=== PATIENT | female | born 1995 | race Caucasian/White ===

== ENCOUNTER 2022-11-25 09:57 | Outpatient (CLI) | payer OTHER, SELFPAY ==
[2022-11-25 18:33] LABS: Alanine Aminotransferase 21 U/L (6-35); Alkaline Phosphatase 65 U/L (38-126); Anion Gap 6 mmol/L (8-16); Aspartate Amino Transferase 30 U/L (14-36); Bilirubin,Total 0.5 mg/dL (0.2-1.3); Blood Urea Nitrogen 9 mg/dL (7-17); Calcium 8.8 mg/dL (8.4-10.2); Carbon Dioxide 26 mmol/L (22-30); Chloride 104 mmol/L (98-107); Cholesterol 184 mg/dL (0-200); Estimated Glomerular Filt Rate > 60; Glucose 81 mg/dL (65-110); HDL Direct 53 mg/dL; Sodium 136 mmol/L (137-145); Triglycerides 62 mg/dL (<150)
[2022-11-25 18:35] LABS: Basophils Percent Auto 0.6 % (0.2-1.2); Eosinophils Absolute Auto 0.1 K/mm3 (0-0.3); Hematocrit 42.4 % (37.0-47.0); Hemoglobin 13.4 g/dL (12.0-15.0); Immature Granulocyte Absolute 0.01 K/mm3 (0.00-0.031); Immature Granulocyte Percent A 0.2 % (0-0.5); Lymphocytes Absolute Auto 2.34 K/mm3 (0.9-3.2); Lymphocytes Percent Auto 36.3 % (18.3-44.2); Mean Corpuscular HGB Conc 31.6 g/dl (32-36); Mean Corpuscular Hemoglobin 27.2 pg (26-34); Mean Corpuscular Volume 86.2 fl (80-100); Mean Platelet Volume 9.7 fl (7.4-10.4); Monocytes Absolute Auto 0.5 K/mm3 (0.1-0.6); Monocytes Percent Auto 7.6 % (2.6-8.5); Neutrophils Absolute Auto 3.4 K/mm3 (1.3-6.7); Neutrophils Percent Auto 53.3 % (45.5-73.1); Platelet Count Result 275 k/mm3 (150-375); Red Blood Count 4.92 M/mm3 (4.2-5.4); White Blood Count 6.5 K/mm3 (4.5-10.0)
[2022-11-25 18:47] LABS: LDL Cholesterol Direct 105 mg/dL
== END 2022-11-25 09:58 | disposition home or self-care (01) ==
PROVIDERS: PCP Family Medicine; Visit Provider Family Medicine
DX: R53.83 Other fatigue (principal); Z13.220 Encounter for screening for lipoid disorders; Z13.29 Encounter for screening for other suspected endocrine disorder; Z13.228 Encounter for screening for other metabolic disorders
CPT/HCPCS: 36415; 80053; 80061; 84443; 85025

== ENCOUNTER 2023-02-08 16:52 | Outpatient (CLI) | payer OTHER, SELFPAY ==
[2023-02-08 20:37] LABS: Beta HCG Quantitative 14.12 mIU/ML
== END 2023-02-08 16:53 | disposition home or self-care (01) ==
LOC: ANHLAB 16:54
PROVIDERS: PCP Family Medicine; Visit Provider Obstetrics & Gynecology
DX: O26.859 Spotting complicating pregnancy, unspecified trimester (principal); Z3A.00 Weeks of gestation of pregnancy not specified
CPT/HCPCS: 36415; 84702

== ENCOUNTER 2023-02-13 15:59 | Outpatient (CLI) | payer OTHER, SELFPAY ==
[2023-02-13 19:37] LABS: Beta HCG Quantitative 10.33 mIU/ML
== END 2023-02-13 16:00 | disposition home or self-care (01) ==
LOC: ANHGOSHLAB 16:01
PROVIDERS: PCP Family Medicine; Visit Provider Obstetrics & Gynecology
DX: O26.859 Spotting complicating pregnancy, unspecified trimester (principal); Z3A.00 Weeks of gestation of pregnancy not specified
CPT/HCPCS: 36415; 84702

== ENCOUNTER 2023-02-27 16:00 | Outpatient (CLI) | payer OTHER, SELFPAY ==
[2023-02-27 18:48] LABS: Beta HCG Quantitative 4.07 mIU/ML
== END 2023-02-27 16:01 | disposition home or self-care (01) ==
LOC: ANHGOSHLAB 16:01
PROVIDERS: PCP Family Medicine; Visit Provider Obstetrics & Gynecology
DX: O02.1 Missed abortion (principal); Z3A.00 Weeks of gestation of pregnancy not specified
CPT/HCPCS: 36415; 84702

== ENCOUNTER → 2023-07-27 10:33 | Outpatient (CLI) | payer OTHER, SELFPAY ==
--- NOTE | ~2023-07-27 | US_ITS ---
EXAMINATION: US OB <=14 wk fetus w TV DATE: 07/27/2023 10:59 INDICATION: First trimester dating TECHNIQUE: Real-time pelvic transabdominal and transvaginal ultrasound was performed. COMPARISON: None. FINDINGS: The uterus measures 7.3 x 6.3 x 4.9 cm. There is an intrauterine gestational sac. There is a 10 mm x 7 mm x 4 mm hypoechoic area adjacent to the gestational sac. A yolk sac is identified. Feta l heart motion is identified measuring 167 beats per minute (bpm) by M-mode Doppler. The crown rump length measures 14 mm, which correlates with an estimated gestational age of 7 weeks and 4 day(s ) (+/-) 5 day(s). The right ovary measures 3.3 x 2.6 x 2.6 cm. The left ovary measures 2.5 x 3.6 x 2.4 cm. There is nor mal vascular flow in the ovaries. There is no free fluid in the pelvis. IMPRESSION: 1. Live intrauterine with an estimated gestational age of 7 weeks and 4 day(s) (+/-) 5 day( s) and an estimated delivery date of 03/10/2024. 2. Small subchorionic hematoma. Reviewed, dictated and finalized at location [facility] IMPRESSION: 1. Live intrauterine with an estimated gestational age of 7 weeks and 4 day(s) (+/-) 5 day(s) and an estimated delivery date of 03/10/2024. 2. Small subchorionic hematoma.
== END ==
PROVIDERS: PCP Family Medicine; Visit Provider Obstetrics & Gynecology
DX: N91.2 Amenorrhea, unspecified (principal); Z3A.01 Less than 8 weeks gestation of pregnancy
CPT/HCPCS: 76801; 76817

== ENCOUNTER 2023-08-14 16:03 | Outpatient (CLI) | payer OTHER, SELFPAY ==
[2023-08-14 18:56] LABS: Basophils Percent Auto 0.3 % (0.2-1.2); Eosinophils Absolute Auto 0.1 K/mm3 (0-0.3); Eosinophils Percent Auto 1.5 % (0-4.4); Hematocrit 41.3 % (37.0-47.0); Hemoglobin 13.7 g/dL (12.0-15.0); Immature Granulocyte Absolute 0.03 K/mm3 (0.00-0.031); Immature Granulocyte Percent A 0.3 % (0-0.5); Lymphocytes Absolute Auto 3.02 K/mm3 (0.9-3.2); Lymphocytes Percent Auto 32.3 % (18.3-44.2); Mean Corpuscular HGB Conc 33.2 g/dl (32-36); Mean Corpuscular Hemoglobin 28.2 pg (26-34); Mean Platelet Volume 9.8 fl (7.4-10.4); Monocytes Absolute Auto 0.5 K/mm3 (0.1-0.6); Monocytes Percent Auto 5.7 % (2.6-8.5); Neutrophils Absolute Auto 5.6 K/mm3 (1.3-6.7); Neutrophils Percent Auto 59.9 % (45.5-73.1); Platelet Count Result 298 k/mm3 (150-375); Red Blood Count 4.86 M/mm3 (4.2-5.4); Red Cell Distribution Width 13.1 % (11.5-14.5); White Blood Count 9.4 K/mm3 (4.5-10.0)
[2023-08-14 20:12] LABS: Hepatitis B Surface Antigen Negative (Negative); Rubella IgG Antibody 38.1 IU/ML
[2023-08-14 20:35] LABS: HIV 1/2 Ab P24 Ag Result Negative (Negative)
[2023-08-15 09:50] LABS: Rapid Plasma Reagin Non-Reactive (NonReactive)
[2023-08-16 09:25] LABS: Varicella IgG Antibody <135.00 Index (>=165.00)
[2023-08-17 09:59] LABS: CMV IgG Antibody <0.60 U/mL (<0.60)
== END 2023-08-14 16:04 | disposition home or self-care (01) ==
LOC: ANHGOSHLAB 16:05
PROVIDERS: PCP Family Medicine; Visit Provider Obstetrics & Gynecology
DX: N91.2 Amenorrhea, unspecified (principal)
CPT/HCPCS: 36415; 84702; 85025; 86592; 86644; 86703; 86747; 86762; 86787; 86850; 86900; 86901; 87086; 87340; G0432

== ENCOUNTER 2024-01-23 17:11 | Outpatient (RCR) | payer OTHER, SELFPAY ==
[2024-01-23 17:46] VITALS: BP 127/73; PULSE 63
== END 2024-04-08 09:54 | disposition home or self-care (01) ==
LOC: ANHOBOP 17:11
PROVIDERS: PCP Family Medicine; Visit Provider Obstetrics & Gynecology
DX: O36.8130 Decreased fetal movements, third trimester, not applicable or unspecified (principal); Z3A.33 33 weeks gestation of pregnancy
CPT/HCPCS: 59025

== ENCOUNTER 2024-02-26 08:42 | Outpatient (CLI) | payer OTHER, SELFPAY ==
[2024-02-26 09:30] VITALS: BP 124/78; PULSE 85
[2024-02-26 09:49] LABS: OBXCEM ROM Plus Negative (Negative)
== END 2024-02-26 09:38 | disposition home or self-care (01) ==
LOC: ANHOBOP 09:29 → ANHLDR 09:44
PROVIDERS: PCP Family Medicine; Visit Provider Obstetrics & Gynecology
DX: O42.90 Premature rupture of membranes, unspecified as to length of time between rupture and onset of labor, unspecified weeks of gestation (principal); Z3A.00 Weeks of gestation of pregnancy not specified
CPT/HCPCS: 59025; 84112; 99199

== ENCOUNTER 2024-03-04 15:57 | Inpatient (IN) | payer OTHER, SELFPAY ==
[2024-03-04] VITALS (13 sets, daily range): BP systolic 118–142; BP diastolic 67–93; PULSE 68–91; TEMP 36.6–36.9; BMI 36.3
[2024-03-04 16:48] LABS: Basophils Percent Auto 0.3 % (0.2-1.2); Eosinophils Percent Auto 0.3 % (0-4.4); Hematocrit 37.8 % (37.0-47.0); Hemoglobin 12.5 g/dL (12.0-15.0); Immature Granulocyte Absolute 0.08 K/mm3 (0.00-0.031); Immature Granulocyte Percent A 0.7 % (0-0.5); Lymphocytes Percent Auto 13.4 % (18.3-44.2); Mean Corpuscular HGB Conc 33.1 g/dl (32-36); Mean Corpuscular Hemoglobin 28.4 pg (26-34); Mean Corpuscular Volume 85.9 fl (80-100); Mean Platelet Volume 12.4 fl (7.4-10.4); Monocytes Absolute Auto 0.5 K/mm3 (0.1-0.6); Monocytes Percent Auto 3.9 % (2.6-8.5); Neutrophils Absolute Auto 9.8 K/mm3 (1.3-6.7); Neutrophils Percent Auto 81.4 % (45.5-73.1); Platelet Count Result 194 k/mm3 (150-375); Red Cell Distribution Width 13.8 % (11.5-14.5)
[2024-03-04] MEDS: DINOPROSTONE 10 MG VAG INSERT VAGINAL (16:55)
[2024-03-04 17:21] LABS: Rapid Plasma Reagin Non-Reactive (NonReactive)
[2024-03-04 17:42] LABS: HIV 1/2 Ab P24 Ag Result Negative (Negative)
[2024-03-05] VITALS (137 sets, daily range): BP systolic 109–151; BP diastolic 63–99; PULSE 63–142; RESP 16–18; TEMP 36.6–37.3; O2SAT 95–100
[2024-03-05] MEDS: OXYTOCIN 30 UNITS/NS 500 ML 30 UNITS/500 ML BAG 6 UNITS IV CONT (05:30)
[2024-03-05] MEDS: LACTATED RINGERS 1,000 ML 125 ML IV CONT ×2 (05:30→08:03)
--- NOTE | 2024-03-05 07:31 | WPDANESEPP ---
Anes - Eval Pre Procedure Procedure: Labor epidural Date/Time: 03/05/24 07:31 Surgeon: Melody Preop Diagnosis: Pain during labor Pre Op Diagnosis: Induction of Labor Patient Data Age: 28 Gender: F Height: 1.68 m Weight: 102 kg Last Vital Signs Temp 36.8 C 03/05/24 05:00 Pulse 91 03/05/24 07:01 BP 127/89 03/05/24 07:01 O2 Del Method Room Air 03/04/24 18:00 Allergies Allergy/AdvReac Type Severity Reaction Status Date / Time No Known Allergies Allergy Verified 02/27/24 16:56 Home Medications Medication Instructions Recorded Confirmed Type [id number] 3-fat com #1 27 1 cap PO DAILY 12/06/23 02/27/24 History mg-1 mg-300 mg capsule omeprazole 20 mg capsule,delayed 20 mg PO DAILY #60 caps 01/15/24 02/27/24 Rx release RSV vac, preF A and preF B(PF) 120 0.5 ml IM ONCE #1 ea 02/07/24 02/27/24 Rx mcg/0.5 mL IM solution (Abrysvo (PF)) sertraline 100 mg tablet 100 mg PO HS 03/04/24 03/04/24 History Laboratory Tests 03/04/24 16:16 WBC 12.0 H K/mm3 (4.5-10.0) RBC 4.40 M/mm3 (4.2-5.4) Hgb 12.5 g/dL (12.0-15.0) Hct 37.8 % (37.0-47.0) MCV 85.9 fl (80-100) MCH 28.4 pg (26-34) MCHC 33.1 g/dl (32-36) RDW 13.8 % (11.5-14.5) Plt Count 194 k/mm3 (150-375) MPV 12.4 H fl (7.4-10.4) Immature Gran % (Auto) 0.7 H % (0-0.5) Neut % (Auto) 81.4 H % (45.5-73.1) Lymph % (Auto) 13.4 L % (18.3-44.2) Stafford % (Auto) 3.9 % (2.6-8.5) Eos % (Auto) 0.3 % (0-4.4) Baso % (Auto) 0.3 % (0.2-1.2) Lymph # (Auto) 1.60 K/mm3 (0.9-3.2) Stafford # (Auto) 0.5 K/mm3 (0.1-0.6) Eos # (Auto) 0.0 K/mm3 (0-0.3) Baso # (Auto) 0.0 K/mm3 (0.0-0.1) Abs Immat Gran (auto) 0.08 H K/mm3 (0.00-0.031) Absolute Neuts (auto) 9.8 H K/mm3 (1.3-6.7) Absolute Nucleated RBC 0.000 K/mm3 (0.0-0.012) Nucleated RBC % 0.0 % (0.0-0.2) RPR Non-reactive (NonReactive) HIV 1&2 Ab/P24 Ag 4thGn Negative (Negative) Blood Type O Positive Antibody Screen Negative Patient hx anesthesia problems: none Family hx anesthesia problems: none Results Review: All pre-operative results and documents have been reviewed as part of the pre-operative evaluation. [facility] Past Medical History Medical History Anxiety Complete miscarriage (02/2023) Surgical History Surgical History History of gynecological procedure (~12/2017) Kyleena insertion History of gynecological procedure (11/28/22) kyleena IUD removal [facility] teeth removed Family History Family History Mother Osteopenia Breast cancer, Onset Age: 50 Father Hypothyroidism, unspecified Grandparent , in her 70's Diabetes mellitus Alzheimer disease Grandparent , in his 60's Rheumatoid arthritis Sibling Hypothyroidism, unspecified Social History Social History Smoking status: Never smoker Second hand tobacco smoke exposure: No Alcohol intake: current Drinks per week: 0 Alcohol use details: will have 1 beer or glass of wine a month Substance use: never Substance use type: does not use Do You Feel Safe in your Home?: Yes Lack of Transportation: No Lack of Food: Never True Current Housing: I Have Housing Concerned About Future Housing: No Difficulty Paying Gas/Electric Bills: No Difficulty Paying for Meds: No Currently Unemployed: No Education: Bachelor's Degree Difficulty w/ Childcare or Family Care: No Living arrangements: other Additional living arrangements comments: Occupation/Education: occupation Additional occupation/education comments: teacher Gender identity (if verbalized
--- NOTE | 2024-03-05 13:51 | WPDHPUPDATE1 ---
History and Physical Update Update Date/Time: 03/05/24 13:51 History and Physical has been reviewed, including an updated exam of the patient. There are NO changes in the patient's condition. Risks, benefits, and alternatives have been discussed and questions answered. Patient agrees to proceed with procedure.
--- NOTE | 2024-03-05 13:51 | WPDOBADMIT ---
Obstetrics - Admit Note Admission Note: record reviewed. No pertinent additions to the history and/or any subsequent changes in the physical findings that are not consistent with the expected course of the were found. Additions to the history and/or subsequent changes in the physical findings follow. None.
--- NOTE | 2024-03-05 13:51 | PM.OBPRVD ---
OB - Vaginal Delivery Note Procedure Delivery date: 03/05/24 Induction method: Per Cervidil Protocol Delivery augmentation: Rupture of Membranes and Pitocin Delivery monitor: External FHT and Internal Uterine Route of delivery: Episiotomy description: None Laceration Description: Perineal - 2nd Degree Delivery repair: chromic Specimen: No Quantitative Blood Loss (ml): 300 Anesthesia type: Epidural Disposition: Floor Complications: No immediate complications Narrative: patient prepped and draped in this procedure. Maternal expulsive efforts readily delivered vertex over intact perineum. Baby was delivered without difficulty, cord clamped cut, and baby passed on maternal abdomen. Placenta delivered spontaneously and the uterus was well contracted. Cervix vagina vulva were inspected with second-degree laceration noted. This was approximated using 2-0 chromic in a running interlocking manner of the vaginal mucosa, deep tissue was approximated as well the subcuticular layer to approximate the perineum. There was no bleeding and this was all well approximated. Immediate postop condition of mother and baby were both excellent. Baby Gestational Age by Date: 39 gender: Female presentation: vertex position: Right Occiput Anterior Placenta delivery description: Spontaneous Cord Vessel Description: 3 Vessels
[2024-03-05] MEDS: OXYTOCIN 30 UNITS/NS 500 ML 30 UNITS/500 ML BAG 125 UNITS IV CONT (14:01)
[2024-03-05] MEDS: COSYNTROPIN 0.25 MG/ML VIAL 1 MG IV PUSH (15:31)
[2024-03-05] MEDS: IBUPROFEN 600 MG TABLET PO ×2 (16:09→23:06)
[2024-03-05] MEDS: BENZOCAINE 20% AER SPR (*SP) 56 GM CAN 1 SPRAY TOPICAL (16:09)
[2024-03-05] MEDS: WITCH HAZEL 40 PADS 1 PAD TOPICAL (16:10)
--- NOTE | 2024-03-05 16:32 | PC.NURSE ---
Patient transferred to post room #281 via wheel chair. Support person present. Oriented to unit, room, information board, rooming in, admission packet and security measures. Patient verbalizes understanding.
[2024-03-05] MEDS: SERTRALINE HCL 50 MG TABLET 100 MG PO (20:46)
[2024-03-06 04:25] VITALS: BP 134/87; PULSE 79; RESP 18; TEMP 36.8; O2SAT 98
[2024-03-06 05:52] LABS: Hematocrit 34.3 % (37.0-47.0); Hemoglobin 11.3 g/dL (12.0-15.0)
[2024-03-06 07:30] VITALS: BP 124/72; PULSE 80; RESP 18; TEMP 36.8; O2SAT 98
[2024-03-06] MEDS: DOCUSATE SODIUM 100 MG CAPSULE PO ×2 (07:49→17:51)
[2024-03-06] MEDS: IBUPROFEN 600 MG TABLET PO ×2 (07:49→17:51)
[2024-03-06 12:17] VITALS: BP 121/78; PULSE 96; RESP 16; TEMP 36.6; O2SAT 98
--- NOTE | 2024-03-06 13:44 | WPDANLDPN2 ---
Anes-Prog Note L&D Date/Time: 03/06/24 13:44 Comfortable throughout: labor and delivery Neuraxial method: epidural Epidural/Spinal procedure site: clean & non-tender Neuro status: Neuro function grossly intact. Cardiovascular status: normal Respiratory status: normal Airway patency: baseline Mental status: baseline Post-Op hydration status: normal Vital Signs: Last Vital Signs Temp 36.6 C 03/06/24 12:17 Pulse 96 03/06/24 12:17 Resp 16 03/06/24 12:17 BP 121/78 03/06/24 12:17 Pulse Ox 98 03/06/24 12:17 O2 Del Method Room Air 03/05/24 23:10 Pain score (VAS): 1 Post-procedural complaints: none Patient feedback: Patient satisfied with anesthetic care.
--- NOTE | 2024-03-06 14:57 | PM.OBDSVD ---
DS: Admitting Diagnosis Discharge Date 03/07/2024 Admitting Diagnosis DS: Discharge Diagnosis Discharge Diagnosis (1) , delivered: Code(s): O80 - Encounter for full-term uncomplicated delivery Status: Acute OB - DS: Summary OB Procedures : None OB Procedures Intrapartum: Spontaneous Vag Delivery OB Procedures: : None Peripartum Data Laceration Description: Perineal - 2nd Degree Episiotomy description: None Time Spent with Patient Time attestation: Total time spent providing and/or coordinating discharge services: DS: Data Data Completed and Pending Labs on day of discharge: Labs from last 24 hours 03/06/24 04:30 Hgb 11.3 L Hct 34.3 L Discharge Plan Discharge Discharging Clinician: Dayton Oliver Patient Disposition: Home, Self-Care Activity: may shower, no straining, follow weight bearing status and pelvic rest Diet: as tolerated Patient Instructions: Antibiotic Form Stand Alone Forms: General Discharge Information Follow-up/Referrals: Dayton Oliver MD [Physician] - 3 Weeks Discharge Medications: New ibuprofen 600 mg Tablet 600 mg PO Q6H PRN (Reason: Cramping) Qty: 30 0RF Continued [id number] 3-fat com #1 27-1-300 mg capsule 1 cap PO DAILY omeprazole 20 mg capsule,delayed release(DR/EC) 20 mg PO DAILY Qty: 60 1RF sertraline 100 mg tablet 100 mg PO HS Abrysvo (PF) 120 mcg/0.5 mL recon soln 0.5 ml IM ONCE Qty: 1 0RF Rx Instructions: as a single dose Date of admission: 03/04/24 15:57 Primary Care Provider: Stan Newton Admitting Provider: Dayton Oliver Attending physician on admission: Dayton Oliver Condition: Stable
--- NOTE | 2024-03-06 16:50 | PC.NURSE ---
Mother verbalizes she is able to independently latch with appropriate positioning and alignment. She denies any nipple discomfort and is responsively . Mother declines any additional assistance or education at this time. Mother is encouraged to call for assistance if her infant doesn?t latch, pain with latching, questions or concerns. Mother voiced understanding of information shared along with the mom/baby guide for an additional resource. Reported to the Primary RN.
--- NOTE | 2024-03-06 18:50 | PC.NURSE ---
PT introductions made and plan of care discussed per post , pain management, breast feeding, phototherapy and daily care activities. PT and spouse both recipients of such instructions and no barriers to learning identified at this time. PT received such instructions per one to one discussion mom baby care guide and demonstrations. PT verbalized understanding of such care. Pt tearful initially because of phototherapy and breast feeding. Questions and concerns were addressed and pt verbalized that she was feeling better.
[2024-03-06 20:00] VITALS: BP 128/94; PULSE 92; RESP 18; TEMP 37.2; O2SAT 98
[2024-03-06] MEDS: SERTRALINE HCL 50 MG TABLET 100 MG PO (22:24)
[2024-03-07] MEDS: DOCUSATE SODIUM 100 MG CAPSULE PO (07:33)
[2024-03-07] MEDS: ACETAMINOPHEN 325 MG TABLET 650 MG PO (07:33)
[2024-03-07] MEDS: IBUPROFEN 600 MG TABLET PO (07:36)
[2024-03-07 07:40] VITALS: BP 133/87; PULSE 97; RESP 18; TEMP 36.5; O2SAT 98
--- NOTE | 2024-03-07 11:45 | PC.NURSE ---
Consulted with mother concerning needs and she shared her struggle with putting baby to breast since baby had to go under bili lights. Mom has been pumping and bottle feeding colostrum, and we reviewed mixing with a small amount of formula to ensure baby gets all the breastmilk. Mother is feeding appropriately for growth of and understands stimulating infant to eat if needed. Infant has an elevated bilirubin and the doctor has recommended supplementation with formula. Mom would eventually like to put baby back to breast but has been bottle feeding only. We discussed ways to get baby back to breast, including attempting at every feeding time. Encouraged mom to try even for just a few minutes, not to allow herself or baby to get too frustrated before they move on to the bottle. We reviewed consistency of pumping (she has a spectra at home) and maintaining a good milk supply. Reinforced understanding of milk production, transition of milk, signs of adequate intake, transition of stool, prevention/relief of engorgement, plugged ducts, mastitis, responsive watching for feeding cues, knowing how much to feed baby (ad fermín, let baby be the guide), and when to call a provider using the resource of the feeding sheet along with the mom and baby guide. Handouts given including latch on checklist, pumping primer and how to know baby is getting enough. USDA milk storage guidelines given also. Mother and father voiced understanding of the information shared, is confident to continue effectively pumping/ her at home, when to call for assistance, denies any additional assistance or education at this time. Reported to the Primary RN.
[2024-03-07] MEDS: INFLUENZA TRIVALENT VACCINE 45 MCG/0.5 ML SYRINGE (12:13)
[2024-03-08 11:56] VITALS: BP 134/90; PULSE 70; RESP 18; TEMP 36.9; O2SAT 100
== END 2024-03-07 12:30 | disposition home or self-care (01) | DRG 807 ==
LOC: ANHLDR 03-05 16:40 → ANHOB2 03-05 16:50
PROVIDERS: Admitting Provider Obstetrics & Gynecology; PCP Family Medicine; Visit Provider Obstetrics & Gynecology
DX: O77.0 Labor and delivery complicated by meconium in amniotic fluid (principal); Z37.0 Single live birth; Z3A.39 39 weeks gestation of pregnancy; O70.1 Second degree perineal laceration during delivery; Z23 Encounter for immunization
CPT/HCPCS: 36415; 85014; 85018; 85025; 86592; 86703; 86850; 86900; 86901; 90471; 90656; A9270; G0008; G0432; J0834; J2590; J2795; J7120